=== PATIENT | male | born 1950 | race Caucasian/White ===

== ENCOUNTER 2023-11-05 09:02 | Day surgery (SDC) | payer MEDICARE, SELFPAY ==
[2023-11-05] VITALS (7 sets, daily range): BP systolic 137–154; BP diastolic 59–84; BMI 28.7
[2023-11-05] MEDS: LOW STRENGTH ASPIRIN 324 MG PO (10:03)
[2023-11-05] MEDS: NSS 257 ML IV (10:19)
--- NOTE | 2023-11-05 12:25 | ITS.CL.CATH ---
[facility] - Catheterization
Cardiac Catheterization
Procedure Report:
LEFT HEART CATHETERIZATION
Date of Procedure: November 05, 2023
Referring: Dr. Zac Ignacio
PROCEDURES:
1. Left heart catheterization with coronary and single-plane left ventriculography
INDICATION: Chest pain. A stress study was scheduled but he developed recurring pain and was seen in the emergency department. His stress study could not be performed for several weeks so coronary angiography was performed instead
ACCESS: The patient tolerated prior catheterization from the right radial approach quite poorly and has had pain in the right wrist since that time. We elected to proceed with common femoral access using the right common femoral artery and
ultrasound guidance
HEMODYNAMICS : (mmHg)
AO (s/d) : 170/80
LV (s/d) : 166/13
LVEDP : 22
CORONARY FINDINGS
DOMINANCE: Right
LEFT MAIN: Normal
LEFT ANTERIOR DESCENDING: The LAD arises normally from the left main running in the anterior interventricular groove. The LAD is a medium caliber vessel that is widely patent supplying several small diagonal branches over its course
CIRCUMFLEX: The circumflex is a medium caliber nondominant vessel. OM1 and OM2 are small to medium caliber vessels that are widely patent and the circumflex terminates in a moderate-sized OM3
RIGHT CORONARY ARTERY: The right coronary artery is a medium caliber dominant vessel with minor luminal irregularities over its course. No focal obstructive stenosis is noted
VENTRICULOGRAPHY: Left ventriculography was performed in an ULLOA projection. The digital single-plane left ventricular ejection fraction is estimated at 65% and no regional wall motion abnormalities are noted.
RADIATION SUMMARY: Fluoro Time (min): 2.8, Dose (mGy): 21.5, DAP (Gy.cm2) : 238.3
Closure Device: 6 [place] Angio-Seal RFA
CONCLUSIONS
1. Normal coronary arteries
2. Preserved left ventricular systolic function
Copy to: Dr. Zac Ignacio
== END 2023-11-05 14:05 | disposition home or self-care (01) ==
LOC: CATH 09:02
PROVIDERS: ATTENDING PHYSICIAN Internal Medicine Interventional Cardiology; FAMILY PHYSICIAN Internal Medicine Geriatric Medicine
DX: R07.9 Chest pain, unspecified (principal); I10 Essential (primary) hypertension; K21.9 Gastro-esophageal reflux disease without esophagitis
CPT/HCPCS: 93458; C1894; Q9967

== ENCOUNTER → 2023-11-23 13:06 | Outpatient (REF) | payer MEDICARE, SELFPAY ==
[2023-11-23 14:30] LABS: % Basophils 0.4 % (0-2); % Eosinophils 2.4 % (0-6); % Immature Granulocytes 0.3 % (0-0.5); % Lymphocytes 19.8 % (20.5-51.1); % Monocytes 10.9 % (1.7-9.3); % Neutrophils 66.2 % (42.2-75.2); Absolute Eosinophils 0.2 10^3/uL (0-0.7); Absolute Lymphocytes 1.5 10^3/uL (1.2-3.4); Absolute Monocytes 0.8 10^3/uL (0.1-0.6); Absolute Neutrophils 4.9 10^3/uL (1.4-6.5); Hemoglobin 12.1 g/dL (13.0-18.0); Mean Corp Hgb Conc. 31.8 g/dL (33.0-37.0); Mean Corpuscular Hgb 26.1 pg (27.0-31.0); Mean Corpuscular Volume 81.9 fL (80.0-94.0); Mean Platelet Volume 9.2 fL (7.4-10.4); Nucleated Red Blood Cells % 0 % (-); Platelet Count 347 10^3/uL (130-400); Red Blood Cell Count 4.64 10^6/uL (4.70-6.10); Red Cell Dist. Width 15.4 % (11.5-14.5); White Blood Cell Count 7.4 10^3/uL (4.8-10.8)
[2023-11-23 14:44] LABS: ALT (SGPT) 15 U/L (0-50); AST (SGOT) 19 U/L (17-59); Albumin 4.1 g/dl (3.5-5.0); Alkaline Phosphatase 85 U/L (38-126); Blood Urea Nitrogen 19 mg/dl (9-20); Calcium 9.6 mg/dl (8.4-10.2); Carbon Dioxide 23 mmol/L (22-30); Chloride 106 mmol/L (98-107); Glucose 81 mg/dl (70-99); HDL Cholesterol 39 mg/dl; LDL Cholesterol, Calculated 50 mg/dl; Potassium 4.5 mmol/L (3.5-5.1); Sodium 142 mmol/L (135-145); Total Bilirubin 0.7 mg/dl (0.2-1.3); Total Cholesterol 105 mg/dl (50-199); Total Protein 6.8 g/dl (6.3-8.2); Triglyceride 80 mg/dl (10-149); Very Low Density Lipoprotein 16 mg/dl (0-30); eGFR > 60.00
[2023-11-23 15:01] LABS: Vitamin D, 25-OH*** 67.8 ng/mL (30-80)
[2023-11-23 15:15] LABS: PSA, Total - Diagnostic 2.82 ng/ml (0.0-4.0)
== END ==
LOC: REG 13:06
PROVIDERS: ATTENDING PHYSICIAN Specialist; FAMILY PHYSICIAN Internal Medicine Geriatric Medicine
DX: I10 Essential (primary) hypertension (principal); C61 Malignant neoplasm of prostate; K21.9 Gastro-esophageal reflux disease without esophagitis; R07.89 Other chest pain; I25.10 Atherosclerotic heart disease of native coronary artery without angina pectoris; E78.00 Pure hypercholesterolemia, unspecified; M17.11 Unilateral primary osteoarthritis, right knee; E55.9 Vitamin D deficiency, unspecified; R55 Syncope and collapse; Z13.31 Encounter for screening for depression
CPT/HCPCS: 36415; 80053; 80061; 82306; 84153; 85025

== ENCOUNTER → 2024-02-04 12:58 | Outpatient (REF) | payer MEDICARE, SELFPAY | LOC: RAD 12:58 | PROVIDERS: ATTENDING PHYSICIAN Internal Medicine Cardiovascular Disease; FAMILY PHYSICIAN Internal Medicine Geriatric Medicine | DX: R10.31 Right lower quadrant pain (principal) | CPT/HCPCS: 93926 ==

== ENCOUNTER → 2024-03-03 06:19 | Day surgery (SDC) | payer MEDICARE, SELFPAY | LOC: GI 06:19 | PROVIDERS: ATTENDING PHYSICIAN Internal Medicine Gastroenterology | DX: Z12.11 Encounter for screening for malignant neoplasm of colon (principal); K57.30 Diverticulosis of large intestine without perforation or abscess without bleeding; K64.8 Other hemorrhoids; K51.40 Inflammatory polyps of colon without complications; Z86.010 Personal history of colon polyps | CPT/HCPCS: 45385; 88305 ==

== ENCOUNTER → 2024-04-04 11:07 | Outpatient (REF) | payer MEDICARE, SELFPAY ==
[2024-04-04 13:52] LABS: PSA, Total - Diagnostic < 0.06 ng/ml (0.0-4.0)
== END ==
LOC: REG 11:07
PROVIDERS: ATTENDING PHYSICIAN Specialist; FAMILY PHYSICIAN Internal Medicine Geriatric Medicine
DX: C61 Malignant neoplasm of prostate (principal)
CPT/HCPCS: 36415; 84153

== ENCOUNTER → 2024-07-04 10:12 | Outpatient (REF) | payer MEDICARE, SELFPAY ==
[2024-07-04 12:00] LABS: PSA, Total - Diagnostic < 0.06 ng/ml (0.0-4.0)
== END ==
LOC: REG 10:12
PROVIDERS: ATTENDING PHYSICIAN Specialist; FAMILY PHYSICIAN Internal Medicine Geriatric Medicine
DX: C61 Malignant neoplasm of prostate (principal)
CPT/HCPCS: 36415; 84153

== ENCOUNTER → 2024-07-10 15:19 | Outpatient (REF) | payer MEDICARE, SELFPAY | LOC: CLAB 15:19 | PROVIDERS: ATTENDING PHYSICIAN Specialist | DX: N45.1 Epididymitis (principal) | CPT/HCPCS: 87086 ==

== ENCOUNTER → 2024-09-27 09:33 | Outpatient (REF) | payer MEDICARE, SELFPAY ==
[2024-09-27 11:10] LABS: PSA, Total - Diagnostic 1.61 ng/ml (0.0-4.0)
== END ==
LOC: REG 09:33
PROVIDERS: ATTENDING PHYSICIAN Specialist; FAMILY PHYSICIAN Internal Medicine Geriatric Medicine
DX: C61 Malignant neoplasm of prostate (principal)
CPT/HCPCS: 84153

== ENCOUNTER → 2024-11-29 08:41 | Outpatient (REF) | payer MEDICARE, SELFPAY ==
[2024-11-29 10:48] LABS: PSA, Total - Diagnostic 3.69 ng/ml (0.0-4.0)
== END ==
LOC: REG 08:41
PROVIDERS: ATTENDING PHYSICIAN Specialist; FAMILY PHYSICIAN Internal Medicine Geriatric Medicine
DX: C61 Malignant neoplasm of prostate (principal)
CPT/HCPCS: 36415; 84153

== ENCOUNTER → 2025-02-26 10:21 | Outpatient (REF) | payer MEDICARE, SELFPAY ==
[2025-02-26 12:24] LABS: PSA, Total - Diagnostic < 0.06 ng/ml (0.0-4.0)
== END ==
LOC: REG 10:21
PROVIDERS: ATTENDING PHYSICIAN Specialist
DX: C61 Malignant neoplasm of prostate (principal)
CPT/HCPCS: 36415; 84153

== ENCOUNTER → 2025-06-18 14:17 | Outpatient (REF) | payer MEDICARE, SELFPAY ==
[2025-06-18 15:55] LABS: PSA, Total - Diagnostic < 0.06 ng/ml (0.0-4.0)
== END ==
LOC: REG 14:17
PROVIDERS: ATTENDING PHYSICIAN Specialist; FAMILY PHYSICIAN Internal Medicine Geriatric Medicine
DX: C61 Malignant neoplasm of prostate (principal)
CPT/HCPCS: 36415; 84153

== ENCOUNTER → 2025-06-23 15:43 | Outpatient (REF) | payer MEDICARE, SELFPAY ==
[2025-06-24 17:37] LABS: Urine Character Cloudy (Clear)
[2025-06-24 17:52] LABS: Urine Squamous Cell 0-2 /LPF (Few)
[2025-06-24 17:54] LABS: Urine Red Blood Cell 0-2 /HPF (0-2); Urine White Cell 0-2 /HPF (0-5)
== END ==
LOC: CLAB 15:43
PROVIDERS: ATTENDING PHYSICIAN Specialist
DX: R30.0 Dysuria (principal)
CPT/HCPCS: 81003; 81015; 87086